=== PATIENT | female | born 1965 | race Two or more races ===

== ENCOUNTER 2017-10-11 13:19 | Emergency (ER) | payer MEDICAID ==
[~2017-10-11] VITALS: Ht 162.6 cm; Wt 63.0 kg
--- NOTE | 2017-10-11 13:30 | NUR ---
AAOX3, [id number] from clinic: chest pain since 9AM. nitro X 1 asa 162 given in field by ems. RR is even and unlabored with NAD noted. Skin is warm and dry. Placed on monitor. Awaiting md for eval.
[2017-10-11 13:41] LABS: BASOPHILS % (AUTO) 0.8 % (0.0-2.0); EOSINOPHILS # (AUTO) 0.5 /CMM (0.0-0.7); EOSINOPHILS % (AUTO) 8.8 % (0.0-6.0); HEMATOCRIT 37 % (33-45); HEMOGLOBIN 11.7 g/dL (11.5-14.8); LYMPHOCYTES # (AUTO) 2.2 /CMM (0.8-4.8); LYMPHOCYTES % (AUTO) 36.2 % (20.0-44.0); MEAN CORPUSCULAR HEMOGLOBIN 20 PG (26.0-33.0); MEAN CORPUSCULAR HGB CONC 32 g/dl (31.0-36.0); MEAN CORPUSCULAR VOLUME 63 fL (82-100); MONOCYTES # (AUTO) 0.4 /CMM (0.1-1.30); NEUTROPHILS % (AUTO) 48.2 % (43.0-81.0); PLATELET COUNT (AUTO) 202 /CMM (150-450); RDW COEFFICIENT OF VARIATION 13.9 (11.5-15.0); RED BLOOD CELL COUNT(AUTO) 5.92 MIL/uL (4.0-5.2); WHITE BLOOD COUNT (AUTO) 6.1 K/uL (4.3-11.0)
[2017-10-11 13:51] LABS: CALCIUM, SERUM 9.1 mg/dL (8.5-10.1); CARBON DIOXIDE 29 mmol/L (21-32); CHLORIDE 101 mmol/L (98-107); CREATININE 0.6 mg/dL (0.6-1.3); GLUCOSE 92 mg/dL (74-106); POTASSIUM 3.9 mmol/L (3.5-5.1); SODIUM SERUM 138 mmol/L (136-145); UREA NITROGEN, BLOOD 13 mg/dL (7-18)
[2017-10-11 14:00] LABS: TROPONIN I < 0.017 ng/mL (0.00-0.056)
[2017-10-11 14:11] LABS: EOSINOPHILS % (MANUAL) 8 % (0-4); MONOCYTES % (MANUAL) 9 % (0-11.0); NEUTROPHILS % (MANUAL) 43 (42-76)
[2017-10-11 14:12] LABS: LYMPHOCYTES % (MANUAL) 40 % (16-48)
[2017-10-11 14:30] VITALS: BP 118/75
--- NOTE | 2017-10-11 14:33 | NUR ---
IV removed. Catheter intact and site benign. Pressure and 4x4 applied to site. No bleeding noted.Patient discharged to home in stable condition. Written and verbal after care instructions given. Patient verbalizes understanding of instruction.
== END 2017-10-11 14:32 | disposition home or self-care (01) ==
LOC: ER 13:21
DX: R07.9 Chest pain, unspecified (principal); F41.9 Anxiety disorder, unspecified
CPT/HCPCS: 36415; 71045; 80048; 84484; 85025; 85730; 93005; 99285; A4606; Z7610